=== PATIENT | male | born 1965 | race Caucasian/White ===

== ENCOUNTER 2019-10-29 18:21 | Emergency (ER) | payer SELFPAY ==
[2019-10-29 18:41] VITALS: PULSE 67; RESP 18; TEMP 36.8; O2SAT 97; BMI 34.4
[2019-10-29 19:28] VITALS: RESP 18
--- NOTE | 2019-10-29 19:37 | ECG_ITS ---
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 Measurements Intervals [place] Rate: 62 P: 60 CO: 177 QRS: 24 QRSD: 100 T: 42 QT: 395 QTc: 402 Interpretive Statements SINUS RHYTHM No previous ECG available for comparison Electronically Signed On 10-30-2019 15:17:40 CDT by Rylie Mcgrath M.D. [id number]
[2019-10-29 19:52] LABS: Basophils % 0.5 %; Eosinophils # 0.4 10^3/uL (0.0-0.8); Eosinophils % 4.8 %; Hematocrit 45.9 % (42.0-52.0); Hemoglobin 15.3 g/dL (11.7-16.6); Lymphocytes # 2.2 10^3/uL (0.8-4.8); Lymphocytes % 24.9 %; Mean Corpuscular HGB Conc 33.3 g/dL (30.0-36.0); Mean Corpuscular Hemoglobin 29.5 pg (28.0-34.0); Mean Corpuscular Volume 88.6 fL (80-94); Mean Platelet Volume 9.3 fL (7.4-10.4); Monocytes # 0.6 10^3/uL (0.2-0.9); Monocytes % 6.7 %; Neutrophils # 5.41 10^3/uL (1.8-7.7); Neutrophils % 62.8 %; Nucleated Red Blood Cells % 0 %; Platelet Count 279 10^3/cmm (130-400); Red Blood Count 5.18 10^6/uL (4.1-5.3); White Blood Count 8.6 10^3/uL (4.0-10.0)
--- NOTE | 2019-10-29 20:03 | W.ED.ALLEREA ---
HPI - Allergic Reaction General: Chief complaint: Allergic Reaction Stated complaint: rash/bumps everywhere/ Time Seen by Provider: 10/29/19 19:01 Source: patient Mode of arrival: ambulatory Limitations: no limitations History of Present Illness: HPI narrative: 54-year-old gentleman comes in today with complaints of bumpy rash extending from his legs up through his buttocks and his back. Patient does have some to his upper arms bilaterally. Patient states that he also has had been some elevation in his blood pressure but he is been without his lisinopril. Patient appears well. Patient appears no acute distress. Review of Systems General: Reports: 10 or more systems reviewed and unremarkable except in HPI and below Skin/Breast: Reports: rash Physical Exam Const: COMMON NORMALS: no acute distress and patient oriented x3 GENERAL APPEARANCE: cooperative HENMT: COMMON NORMALS: normocephalic and Normal external nose present HEAD & SCALP: normal to inspection and normocephalic NOSE: Normal external nose present MOUTH: Normal oral and palatal mucosa present THROAT: posterior oropharynx normal Eye: GENERAL EYE: appearance normal, both eyes and all related structures Neck/C-Spine: COMMON NORMALS: full ROM Chest: COMMONS NORMALS: normal inspection of the chest Resp: COMMON NORMALS: normal respiratory effort EFFORT & INSPECTION: Yes able to speak in complete sentences Cardio: COMMON NORMALS: regular rate and regular rhythm RATE: regular rate RHYTHM: regular rhythm GI: COMMON NORMALS: non-tender : COMMON NORMALS: Yes no CVA tenderness BLADDER/KIDNEY EXAM: Yes no CVA tenderness Back/Pelvis: COMMON NORMALS: no CVA tenderness and thoracic and lumbar spine normal to inspection Extremity: COMMON NORMALS: normal to inspection Neuro: COMMON NORMALS: patient oriented x3 and moves all extremities Psych: COMMON NORMALS: mental status grossly normal and cooperative Skin: NARRATIVE SKIN EXAM: Pustular lesions to the bilateral lower extremities on the thighs extending up his buttocks and his back to his upper extremities. Course Vital Signs: Vital signs: Vital Signs Temperature 98.3 F 10/29/19 18:41 Pulse Rate 67 10/29/19 18:41 Respiratory Rate 18 10/29/19 19:28 Pulse Oximetry 97 10/29/19 18:41 MDM - Allergic Reaction MDM Narrative: Medical decision making narrative: Patient comes in today for complaints of rash to his back and buttocks. Patient reports waxing and waning of the rash for about 2 months now. Patient stated that it started on his thigh but now seem to have gone elsewhere on his body. Patient also reports just feeling poorly. Patient states he has been without his blood pressure medicine for a while now and is needing to get back on it for his blood pressure being high. Patient appears well. Patient appears no acute distress. Exam notes pustular type rash to the back and buttocks. Differential diagnosis includes but not limited to folliculitis, seborrheic dermatitis, pemphigus, tickborne illness. Suspected of folliculitis. Patient will be put on doxycycline twice a day for the next 14 days. Laboratory values were unremarkable. Troponin was negative. Vital signs were normal except for mild elevation of blood pressure for systolic in the 150s. Patient was given a refill on his lisinopril 5 mg daily and put in case management for primary care follow-up. Patient stated understanding of care plan and need for follow-up. Lab Data: Labs: Lab Results 10/29/19 10/29/19 10/29/19 Range/Units 19:43 19:43 19:43 WBC 8.6 (4.0-10.0) 10^3/ uL RBC 5.18 (4.1-5.3) 10^6/u L Hgb 15.3 (11.7-16.6) g/dL Hct 45.9 (42.0-52.0) % MCV 88.6 (80-94) fL MCH 29.5 (28.0-34.0) pg MCHC 33.3 (30.0-36.0) g/dL RDW 13.0 (12.1-15.1) % Plt Count 279 (130-400) 10^3/c mm MPV 9.3 (7.4-10.4) fL Neut % (Auto) 62.8 % Lymph % (Auto) 24.9 % Kane % (Auto) 6.7 % Eos % (Auto) 4.8 % Baso % (Auto) 0.5 % Neut # (Auto) 5.41 (1.8-7.7) 10^3/u L Lymph # (Auto) 2.2 (0.8-4.8) 10^3/u L Kane # (Auto) 0.6 (0.2-0.9) 10^3/u L Eos # (Auto) 0.4 (0.0-0.8) 10^3/u L Baso # (Auto) 0.0 (0.0-0.1) 10^3/u L Nucleated RBC % (a uto) 0 % Nucleated RBCs # 0.0 /100WBC Sodium 135 L (136-145) mmol/L Potassium 4.2 (3.5-5.1) mmol/L Chloride 99 (98-107) mmol/L Carbon Dioxide 27 (22-29) mmol/L Anion Gap 13.2 (5-19) BUN 19 (6-20) mg/dL Creatinine 1.0 (0.7-1.2) mg/dL GFR Calculation 77.9 L (90-130) mL/min Glucose 111 (65-115) mg/dL Calculated Osmolal ity 277 L (285-295) mOsm/k g Calcium 9.0 (8.5-10.5) mg/dL Total Bilirubin 0.4 (0.15-1.2) mg/dL AST 17 (0-40) U/L ALT 26 (0-41) U/L Alkaline Phosphata se 71 (40-130) IU/L Troponin T Baselin e 9 (0-15) ng/L Total Protein 6.6 (6.6-8.7) g/dL Albumin 4.2 (3.5-5.2) g/dL Globulin 2.4 (1.3-4.6) g/dL Urine Color (Yellow) Urine Appearance (CLEAR) Urine pH (5-7) Ur Specific Gravit y (1.005-1.030) Urine Protein (Negative) Urine Glucose (UA) (Normal) Urine Ketones (Negative) Urine Blood (Negative) Urine Nitrate (Negative) Urine Bilirubin (Negative) Urine Urobilinogen (Negative) mg/dL Ur Leukocyte Nadeen ase (Negative) 10/29/19 Range/Units 20:38 WBC (4.0-10.0) 10^3/ uL RBC (4.1-5.3) 10^6/u L Hgb (11.7-16.6) g/dL Hct (42.0-52.0) % MCV (80-94) fL MCH (28.0-34.0) pg MCHC (30.0-36.0) g/dL RDW (12.1-15.1) % Plt Count (130-400) 10^3/c mm MPV (7.4-10.4) fL Neut % (Auto) % Lymph % (Auto) % Kane % (Auto) % Eos % (Auto) % Baso % (Auto) % Neut # (Auto) (1.8-7.7) 10^3/u L Lymph # (Auto) (0.8-4.8) 10^3/u L Kane # (Auto) (0.2-0.9) 10^3/u L Eos # (Auto) (0.0-0.8) 10^3/u L Baso # (Auto) (0.0-0.1) 10^3/u L Nucleated RBC % (a uto) % Nucleated RBCs # /100WBC Sodium (136-145) mmol/L Potassium (3.5-5.1) mmol/L Chloride (98-107) mmol/L Carbon Dioxide (22-29) mmol/L Anion Gap (5-19) BUN (6-20) mg/dL Creatinine (0.7-1.2) mg/dL GFR Calculation (90-130) mL/min Glucose (65-115) mg/dL Calculated Osmolal ity (285-295) mOsm/k g Calcium (8.5-10.5) mg/dL Total Bilirubin (0.15-1.2) mg/dL AST (0-40) U/L ALT (0-41) U/L Alkaline Phosphata se (40-130) IU/L Troponin T Baselin e (0-15) ng/L Total Protein (6.6-8.7) g/dL Albumin (3.5-5.2) g/dL Globulin (1.3-4.6) g/dL Urine Color Yellow (Yellow) Urine Appearance Clear (CLEAR) Urine pH 5 (5-7) Ur Specific Gravit y 1.020 (1.005-1.030) Urine Protein Neg (Negative) Urine Glucose (UA) Norm (Normal) Urine Ketones Negative (Negative) Urine Blood Neg (Negative) Urine Nitrate Negative (Negative) Urine Bilirubin Neg (Negative) Urine Urobilinogen Norm (Negative) mg/dL Ur Leukocyte Nadeen ase Negative (Negative) EKG Data^: EKG 1: Attestation: I personally reviewed and interpreted this EKG as follows: (1999, sinus rhythm, 62 bpm, regular rate, no ectopy, no ST elevation, normal ekg) Discharge Plan Discharge Patient Disposition: Home Clinical Impression: Folliculitis Hypertension Qualifiers: Hypertension type: unspecified Qualified Code(s): I10 - Essential (primary) hypertension Condition: Stable Prescriptions: New doxycycline hyclate 100 mg tablet 100 mg PO BID 14 Days Qty: 28 RF: 0 lisinopril 5 mg tablet 5 mg PO DAILY Qty: 30 RF: 0 Discharge Orders: Discharge Order (Routine); Ordered 10/29/19 Ordered By: Derrick Garrett Discharge Diet: Usual diet Discharge Activity: Increase activity as tolerated Patient Instructions: Folliculitis (ED) Activity Restrictions/Additional Instructions: Home and rest. Continue with antibiotic as directed for the next 10 to 14 days. Drink plenty of water with antibiotic. Avoid direct sunlight during the middle of the day as your skin will be more sensitive to the sunlight while on antibiotic. Follow-up with primary care. Return to the emergency department for new concerns or worsening symptoms. 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
[2019-10-29 20:20] LABS: Alanine Aminotransferase 26 U/L (0-41); Albumin Level 4.2 g/dL (3.5-5.2); Alkaline Phosphatase 71 IU/L (40-130); Anion Gap 13.2 (5-19); Aspartate Amino Transferase 17 U/L (0-40); Blood Urea Nitrogen 19 mg/dL (6-20); Carbon Dioxide 27 mmol/L (22-29); Chloride 99 mmol/L (98-107); Globulin 2.4 g/dL (1.3-4.6); Glomerular Filtration Rate 77.9 mL/min (90-130); Glucose 111 mg/dL (65-115); Osmolality Calculated 277 mOsm/kg (285-295); Potassium 4.2 mmol/L (3.5-5.1); Sodium 135 mmol/L (136-145); Total Bilirubin 0.4 mg/dL (0.15-1.2); Total Protein 6.6 g/dL (6.6-8.7)
[2019-10-29 20:21] LABS: Troponin(5th) Baseline 9 ng/L (0-15)
[2019-10-29 20:28] VITALS: RESP 18
[2019-10-29 21:00] VITALS: RESP 18
[2019-10-29 21:05] LABS: Add Urine Microscopic? NO
[2019-10-29 21:07] LABS: Urine Appearance Clear (CLEAR); Urine Color Yellow (Yellow); pH Urine 5 (5-7)
[2019-10-29 21:08] LABS: Bilirubin Urine Neg (Negative); Blood Urine Neg (Negative); Glucose Urine UA Norm (Normal); Ketones Urine Negative (Negative); Leukocyte Esterase Urine Negative (Negative); Nitrate Urine Negative (Negative); Protein Urine Neg (Negative); Urobilinogen Urine Norm (Negative)
[2019-10-29 21:21] VITALS: RESP 18
[2019-10-29] MEDS: doxycycline 100 mg Tablet PO (21:22)
[2019-10-29] MEDS: dexamethasone 10 mg/mL INJ 8 MG IM (21:22)
--- NOTE | 2019-10-29 21:51 | PC.NURSE ---
patient swabbed for COVID at this time
[2019-10-31 21:56] LABS: Quest SARS-CoV-2 RNA NOT DETECTED (NOT DETECTED)
--- NOTE | 2019-11-01 10:11 | DCPLANNER ---
district manager postal service had message to speak with patient about getting established with a primary care physician. district manager postal service spoke with patient, he stated that he does not have a primary care physician and he would like to get one but he does not have insurance. district manager postal service offered to get patient established with a physician at the [facility], and offered to send both of the financial specialist applications for the hospital to fill out and turn in. Patient stated that he needed to speak with his fiance, because she has spoke with someone and he does not know what clinic she spoke to and the clinic stated that the clinic would see patient. Patient is supposed to call binder caser back and inform binder caser if patient would like binder caser to do anything for patient.
== END 2019-10-29 21:52 | disposition home or self-care (01) ==
PROVIDERS: Emergency Provider Nurse Practitioner Family
DX: L73.9 Follicular disorder, unspecified (principal); I10 Essential (primary) hypertension
CPT/HCPCS: 12345; 36415; 80053; 81003; 84484; 85025; 87070; 87077; 87186; 87635; 93005; 96372; 99282; 99284; J1100